=== PATIENT | female | born 1955 | race Hispanic/Latino ===

== ENCOUNTER 2025-03-26 09:09 | Outpatient (CLI) | payer MEDICARE | END 2025-03-26 09:10 | disposition home or self-care (01) | LOC: CSHMAMMO 09:09 | PROVIDERS: ATTEND Family Medicine | DX: Z78.0 Asymptomatic menopausal state (principal); M81.0 Age-related osteoporosis without current pathological fracture; M85.89 Other specified disorders of bone density and structure, multiple sites | CPT/HCPCS: 77080 ==

== ENCOUNTER 2025-04-19 14:54 | Outpatient (CLI) | payer MEDICARE | END 2025-04-19 14:55 | disposition home or self-care (01) | LOC: CSHMAMMO 14:54 | PROVIDERS: ATTEND Family Medicine | DX: R92.1 Mammographic calcification found on diagnostic imaging of breast (principal); Z80.3 Family history of malignant neoplasm of breast ==